=== PATIENT | female | born 2000 | race Asian ===

== ENCOUNTER 2022-09-23 03:51 | Emergency (ER) | payer BC, SELFPAY ==
[2022-09-23 04:01] VITALS: BP 125/87; PULSE 108; RESP 18; TEMP 37; O2SAT 100; BMI 23.8
--- NOTE | 2022-09-23 04:24 | ED_ITS ---
HPI - General Adult General Chief complaint: Sore Throat Stated complaint: Swollen Throat, difficulty speaking and swallowing Time Seen by Provider: 09/23/22 04:08 Source: patient Mode of arrival: ambulatory History of Present Illness HPI narrative: 22-year-old female with a history of mononucleosis, diagnosed 5 days ago presents with worsening sore throat, difficulty swallowing. No difficulty breathing. No fever. No nausea or vomiting. She has been taking Tylenol 500 mg every 4 hours at most, no ibuprofen. She reports that she was seen in the clinic and started prednisone yesterday, 2 tablets once daily but she does not recall the dose. She feels like she can no longer drink or swallow. Her urination has thus far been normal. She states that she has no long-term health problems, no prior surgeries. No long-term prescription medications, no allergies. Socially she is a nonsmoker. 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 ROS is notable for the HEENT, generalized symptoms as above, otherwise denies times 12 systems. Related Data Home Medications Medication Instructions Recorded Confirmed prednisone .ROUTE 09/23/22 Allergies Allergy/AdvReac Type Severity Reaction Status Date / Time No Known Drug Allergies [facility]ergy Verified 09/23/22 03:56 [facility] Social History Smoking Status: Never smoker Do you use any of these nicotine containing products: None Second hand tobacco smoke exposure: No How often do you have a drink containing alcohol: never How often do you have six or more drinks on one occasion: Never AUDIT-C Alcohol total score: 0 Non-prescribed substance use: denies use Exam Const: Vital Signs, click to edit/add: Vital Signs - 24 hr 09/23/22 04:01 Temperature 98.6 F Pulse Rate [Pulse Oximeter] 108 H Respiratory Rate 18 Blood Pressure [Le ft Upper Arm] 125/87 Pulse Oximetry 100 Oxygen Delivery Me thod Room Air Documenting provider has reviewed patient's vital signs: yes Common normals: no apparent distress General appearance: cooperative and well kempt Other: Excellent historian, polite and cooperative. HENMT: Common normals: normocephalic Head and scalp: normocephalic Face and sinus: normal facial exam Other: Lips are acyanotic, normal dentition. Patient is able to manage her oral secretions. Membranes are lightly moist. Tonsils are 3+ with falk plaque, mono appearance, typical of this illness. Redness and irritation noted. No stridor or airway difficulty. Eye: Common normals: conjunctivae normal General eye: normal appearance of both eyes Conjunctiva: conjunctiva(e) normal Neck & C-Spine: Other: Moderate anterior cervical and submandibular lymphadenopathy noted. Normal range of motion of neck Resp: Common normals: normal respiratory effort and clear to auscultation bilaterally Effort & inspection: able to speak in complete sentences Auscultation: clear to auscultation bilaterally Cardio: Common normals: regular rate, regular rhythm, S1 normal heart sound, S2 normal heart sound and no murmurs Rate: regular rate Rhythm: regular rhythm Heart sounds: S1 normal and S2 normal GI: Common normals: Normal to inspection, nondistended, normoactive bowel sounds present, non-tender, no hepatosplenomegaly and no masses Palpation: no hepatosplenomegaly Extremity: Common normals: normal capillary refill and no pedal edema Psych: Common normals: speech normal Appearance: well kempt Attitude: engaged Activity/motor behavior: appropriate eye contact Speech: normal speech Insight: insight good Judgement: judgment good Skin: Common normals: no rashes or lesions noted General skin exam: no rashes or lesions noted Course Vital Signs Vital signs: Initial Vital Signs Temperature 98.6 F 09/23/22 04:01 Temperature Source Temporal Artery Scan 09/23/22 04:01 Pulse Rate 108 H 09/23/22 04:01 Pulse Rhythm Regular 09/23/22 04:01 Respiratory Rate 18 09/23/22 04:01 Blood Pressure 125/87 09/23/22 04:01 Blood Pressure Mean 99 09/23/22 04:01 Pulse Oximetry 100 09/23/22 04:01 Oxygen Delivery Method Room Air 09/23/22 04:01 Vital Signs Temperature 98.6 F 09/23/22 04:01 Pulse Rate 108 H 09/23/22 04:01 Respiratory Rate 18 09/23/22 04:01 Blood Pressure 125/87 09/23/22 04:01 Pulse Oximetry 100 09/23/22 04:01 Oxygen Delivery Method Room Air 09/23/22 04:01 Temperature 98.6 F 09/23/22 04:01 Pulse Rate 108 H 05/05/23 04:01 Respiratory Rate 18 09/23/22 04:01 Blood Pressure 125/87 09/23/22 04:01 Pulse Oximetry 100 09/23/22 04:01 Oxygen Delivery Method Room Air 09/23/22 04:01 Medical Decision Making MDM Narrative Medical decision making narrative: Typical mononucleosis without any signs of secondary bacterial infection or airway compromise. Dehydration secondary to poor pain control and difficulty swallowing. Counseled patient that unfortunately when you start to get dehydrated, it hurts more in becomes more difficult to swallow and is therefore a bit of a vicious cycle. She will be given 2 L of lactated Ringer's to help replace potential potassium deficit 15 mg of IV Toradol and another dose of Tylenol. Counseled on the importance of keeping up with fluids, keeping up with Tylenol and ibuprofen. Counseled that rectal Tylenol is available [id number] if it becomes difficult to swallow. Discussed signs and symptoms of airway compromise and dehydration that would warrant repeat ED visit. She should continue the prednisone as prescribed. Hopefully this will kick in within a couple of days. Hopefully this large amount of IV fluid will get her through until the prednisone can kick in. All questions answered, she verbalizes understanding and agreement. Discharge Plan Discharge Clinical Impression: Mononucleosis syndrome, Mild dehydration Patient Disposition: Home, Self-Care Condition: Stable Instructions: Mononucleosis (ED) Additional Instructions: There are no signs of airway compromise from your mononucleosis. Even though it is difficult to swallow, your secretions are going down your throat safely. As expected with this illness, your throat is very irritated and sore. Things get more irritated if you get dehydrated. Unfortunately that starts a vicious cycle. You have been given IV fluids here in the emergency department and dose of Toradol which is basically ibuprofen. This will help somewhat with pain. I agree with the plan to start some prednisone. Continue taking this exactly as prescribed. This fluid we have given you will help get you through for the next couple of days until the prednisone can fully kick in. For pain control, You may take 4000 mg of Tylenol per day. To make this easier on you, I would recommend taking 1000 mg every 6 hours. If you have pain in between your doses of Tylenol, I would recommend that you take 600 mg of ibuprofen up to every 6 hours also. Continue pushing fluids even in small frequent amounts. Typically there are about 2 weeks of terrible sore throat with this illness. There are no other signs of significant complication. The prednisone will also improve your symptoms a little, making it easier for you to keep down liquids. There are no signs of bacterial infection or other complication today. Come back to the emergency department if you have difficulty breathing or have worsening signs of dehydration. Activity Level: Activity as Tolerated Discharge Diet: Regular Prescriptions: No Action prednisone .ROUTE Stand Alone Forms: Exploretrip Info Instructions
[2022-09-23] MEDS: KETOROLAC 15 MG/ML inj IVP (04:32)
[2022-09-23] MEDS: ACETAMINOPHEN 500 MG TABLET 1000 MG PO (04:33)
[2022-09-23 04:48] VITALS: PULSE 89; RESP 18; O2SAT 100
[2022-09-23 05:09] VITALS: BP 136/81; PULSE 90; RESP 18; O2SAT 100
[2022-09-23 06:09] VITALS: BP 136/88; PULSE 88; RESP 18; O2SAT 100
== END 2022-09-23 06:10 | disposition home or self-care (01) ==
LOC: ED 05:45
PROVIDERS: Emergency Provider Family Medicine
DX: B27.90 Infectious mononucleosis, unspecified without complication (principal); E86.0 Dehydration
CPT/HCPCS: 96374; 99282; 99283; 99284; A9270; J1885; J7120

== ENCOUNTER 2022-09-27 14:51 | Day surgery (SDC) | payer BC, SELFPAY ==
[2022-09-27] VITALS (21 sets, daily range): BP systolic 125–149; BP diastolic 20–104; PULSE 62–96; RESP 10–18; TEMP 36.4–37.3; O2SAT 95–100; BMI 23.8
--- NOTE | 2022-09-27 15:11 | CRLHL7_ITS ---
For Patients: As a result of the Century Cures Act, medical imaging exams and procedure reports are released immediately into your electronic medical record. You may view this report before your referring provider. If you have questions, please contact your health care provider. INDICATION: Right-sided peritonsillar abscess TECHNIQUE: CT soft tissue of the neck was acquired with 64 cc Isovue 370 intravenous contrast. COMPARISON: None FINDINGS: Included intracranial contents are unremarkable. Include a portion of the orbits are unremarkable. Mucous retention cyst within the left maxillary sinus. Parotid and submandibular glands are unremarkable. Enlarged jugular lymph nodes, largest at level 2 measuring 12 millimeters. Prominent tonsillar enlargement, greater on the right with a right peritonsillar fluid collection which measures 2.3 x 1.6 x 3.1 centimeters (series 3, image 26; series 4, image 27). Associated edema within the right parapharyngeal space. This causes [id number]-ardpuodk oropharyngeal narrowing. Epiglottis unremarkable. Thyroid gland unremarkable. Lung apices unremarkable. IMPRESSION: 1. Acute tonsillitis with right peritonsillar abscess measuring up to 2.3 x 1.6 x 3.1 centimeters. Associated [id number]-avwxrgnu oropharyngeal narrowing. 2. Jugular lymphadenopathy, presumed reactive to the tonsillar infection. Please note that all CT scans at this facility use dose modulation, iterative reconstruction, and/or weight-based dosing when appropriate to reduce radiation dose to as low as reasonably achievable. Dictated by Claus Min MD @ 09/27/2022 4:00:43 PM (Electronically Signed)
--- NOTE | 2022-09-27 15:21 | ED_ITS ---
HPI - General Adult General Date Seen: 09/27/22 Chief complaint: Ear/Nose/Throat Problem Stated complaint: Throat Abscess Time Seen by Provider: 09/27/22 14:55 Source: patient Mode of arrival: ambulatory Limitations: no limitations History of Present Illness HPI narrative: Patient is a very nice 22-year-old female who has on mononucleosis for the last 5 days, she has increasing swelling along the right side of her neck and problems opening her mouth, she saw the nurse practitioner [facility] here to be evaluated, they were worried about abscess. She has a low-grade fever associated with this, she has has no nausea vomiting, she has no problems swallowing her spit, but says the right side of the throat is very sore, she has been trying some Tylenol and ibuprofen. No history of in fact she tells me there is 0 chance she is . She is from [facility], is student at [employer] speaks excellent Hungarian. Related Data Home Medications Medication Instructions Recorded Confirmed prednisone .ROUTE 09/23/22 Previous Rx's Medication Instructions Recorded amoxicillin 875 mg-potassium 1 tab PO Q12H 7 days #14 tabs 09/27/22 clavulanate 125 mg tablet oxycodone 5 mg tablet 5 mg PO Q6H PRN pain #10 tabs 09/27/22 Allergies Allergy/AdvReac Type Severity Reaction Status Date / Time No Known Drug Allergies Allergy Verified 09/27/22 14:56 Review of Systems Status of ROS: Reports: 10 or more systems reviewed and unremarkable except as noted in History and below PFSH PFSH Social History Smoking Status: Never smoker Do you use any of these nicotine containing products: None Second hand tobacco smoke exposure: No How often do you have a drink containing alcohol: never How often do you have six or more drinks on one occasion: Never AUDIT-C Alcohol total score: 0 Non-prescribed substance use: denies use Exam Narrative: Exam Narrative: Patient is seen in room 3 she is thin extremely nice little bit teary, pupils equal round reactive to light TMs are normal, she has some trismus but can open up to 2 finger breaths. Right-sided peritonsillar swelling is noted, not constricting upon the uvula. Left side appears normal, lymphadenopathy 1 to 2+ in the right side, 1+ on the left. Somewhat shotty and tender, there is no up pointing of the lymph nodes, there is no meningismus, chest is clear bilaterally no wheezing crackles noted heart sounds are normal, abdomen is soft and scaphoid. Const: Vital Signs, click to edit/add: Vital Signs - 24 hr 09/27/22 14:53 09/27/22 15:51 09/27/22 16:20 Temperature 98.4 F Pulse Rate Pulse Rate [Left P ulse Oximeter] Pulse Rate [Right Pulse Oximeter] 92 94 83 Respiratory Rate 16 14 14 Blood Pressure Blood Pressure [Ri ght Arm] Blood Pressure [Ri ght Upper Arm] 133/89 125/88 130/91 H Pulse Oximetry 95 98 100 Oxygen Delivery Mt thod Room Air Room Air Room Air 09/27/22 17:25 09/27/22 18:08 09/27/22 18:10 Temperature 97.6 F 97.6 F Pulse Rate 96 88 Pulse Rate [Left P ulse Oximeter] Pulse Rate [Right Pulse Oximeter] 92 Respiratory Rate 16 14 10 L Blood Pressure 140/96 H 139/92 H Blood Pressure [Ri ght Arm] Blood Pressure [Ri ght Upper Arm] 138/93 H Pulse Oximetry 100 100 97 Oxygen Delivery Mt thod Room Air Room Air Room Air 09/27/22 18:15 09/27/22 18:20 09/27/22 18:25 Temperature Pulse Rate 89 85 73 Pulse Rate [Left P ulse Oximeter] Pulse Rate [Right Pulse Oximeter] Respiratory Rate 14 10 L 10 L Blood Pressure 135/87 136/20 L 131/86 Blood Pressure [Ri ght Arm] Blood Pressure [Ri ght Upper Arm] Pulse Oximetry 98 100 98 Oxygen Delivery Mt thod Room Air Room Air Room Air 09/27/22 18:30 09/27/22 18:35 09/27/22 18:40 Temperature 97.9 F Pulse Rate 69 79 80 Pulse Rate [Left P ulse Oximeter] Pulse Rate [Right Pulse Oximeter] Respiratory Rate 12 14 14 Blood Pressure 132/85 149/97 H 139/83 Blood Pressure [Ri ght Arm] Blood Pressure [Ri ght Upper Arm] Pulse Oximetry 98 100 100 Oxygen Delivery Mt thod Room Air Room Air Room Air 09/27/22 18:45 09/27/22 19:00 09/27/22 19:15 Temperature 99.0 F Pulse Rate Pulse Rate [Left P ulse Oximeter] 79 82 77 Pulse Rate [Right Pulse Oximeter] Respiratory Rate 16 16 16 Blood Pressure Blood Pressure [Ri ght Arm] 144/94 H 143/104 H 131/84 Blood Pressure [Ri ght Upper Arm] Pulse Oximetry 100 100 98 Oxygen Delivery Me thod Room Air Room Air Room Air 09/27/22 19:30 Temperature Pulse Rate Pulse Rate [Left P ulse Oximeter] 89 Pulse Rate [Right Pulse Oximeter] Respiratory Rate 16 Blood Pressure Blood Pressure [Ri ght Arm] 141/91 H Blood Pressure [Ri ght Upper Arm] Pulse Oximetry 99 Oxygen Delivery Me thod Room Air Course Course Hospital Course: through , will come and see patient. Dr. Benavides did come see the patient, he will be taking her to the OR for drainage, he will give antibiotics and air in the operating room, she will be kept NPO. She is fit for surgery ASA 1. This will suffice is a preop history and physical. Vital Signs Vital signs: Initial Vital Signs Temperature 98.4 F 09/27/22 14:53 Temperature Source Temporal Artery Scan 09/27/22 14:53 Pulse Rate 92 09/27/22 14:53 Pulse Rhythm Regular 09/27/22 14:53 Pulse Strength 3+ Normal 09/27/22 14:53 Respiratory Rate 16 09/27/22 14:53 Blood Pressure 133/89 09/27/22 14:53 Blood Pressure Mean 103 09/27/22 14:53 Blood Pressure Position Sitting 09/27/22 14:53 Pulse Oximetry 95 09/27/22 14:53 Oxygen Delivery Method Room Air 09/27/22 14:53 Vital Signs Temperature 98.4 F 09/27/22 14:53 Pulse Rate 92 09/27/22 14:53 Respiratory Rate 16 09/27/22 14:53 Blood Pressure 133/89 09/27/22 14:53 Pulse Oximetry 95 09/27/22 14:53 Oxygen Delivery Method Room Air 09/27/22 14:53 Temperature 99.0 F 09/27/22 18:45 Pulse Rate 89 09/27/22 19:30 Respiratory Rate 16 09/27/22 19:30 Blood Pressure 141/91 H 05/09/23 19:30 Pulse Oximetry 99 09/27/22 19:30 Oxygen Delivery Method Room Air 09/27/22 19:30 Medical Decision Making MDM Narrative Medical decision making narrative: During this evaluation I considered peritonsillar abscess retropharyngeal abscess epiglottitis, strep pharyngitis, viral pharyngitis and worsening of her mononucleosis. We will go ahead and start an IV, will do some labs, get a CT scan will with IV contrast, and likely after does discussed the case with ENT. Signed over to the oncoming ER physician for further disposition, we talked about treatment options available to our was started on IV fluids and give her some Toradol IV, she was comfortable this plan. Medical Records Medical records reviewed: Yes I reviewed the patient's medical records Lab Data Lab results reviewed: Yes I reviewed the patient's lab results Labs: Lab Results 09/27/22 09/27/22 Range/Units 15:00 15:20 WBC 11.87 H (4.50-11.00) K/uL RBC 4.73 (4.00-5.20) m/uL Hgb 11.9 L (12.0-16.0) gm/dL Hct 37.5 (33.0-51.0) % MCV 79 L (80-100) fL MCH 25 L (26-34) pg MCHC 32 (32-36) gm/dL RDW Coeff of Keyshawn 16.7 H (11.5-15.5) % Plt Count 332 (140-440) K/uL Neut % (Auto) 57.7 (42.0-72.0) % Lymph % (Auto) 35.6 (20-44) % [place] % (Auto) 5.8 (0.0-11.0) % Eos % (Auto) 0.4 (0.0-7.0) % Baso % (Auto) 0.2 (0.0-3.0) % Neut # (Auto) 6.80 (1.7-7.0) K/uL Lymph # (Auto) 4.20 H (0.90-2.90) K/uL [place] # (Auto) 0.70 (0.00-0.90) K/UL Eos # (Auto) 0.00 (0.00-0.50) K/uL Baso # (Auto) 0.00 (0.00-0.30) K/uL Sodium 139 (135-149) mmol/L Potassium 3.5 L (3.6-5.1) mmol/L Chloride 105 (96-114) mmol/L Carbon Dioxide 24 (20-32) mmol/L BUN 8 (5-24) mg/dL Creatinine 0.7 (0.5-1.5) mg/dL Estimated Creat Clear 101.39 Estimated GFR 127 ml/min Glucose 100 (60-115) mg/dL Calcium 8.8 (8.4-10.6) mg/dL C-Reactive Protein 7.0 H (0.5-1.0) mg/dL Group A Strep DNA NOT DETECTED (Not Detectd) Imaging Data Soft tissue neck: Attestation: I have reviewed the pertinent imaging results. My impression: Right-sided peritonsillar abscess, Radiologist's impression: Patient: SUSAN ANN Facility:?[facility] Patient ID:?[id number] Site Patient ID:?[id number]. Site :?[id number] Study:?CT ST Neck W ISOVUE 370-09/27/2022 3:45:11 PM Ordering Physician:?Mary Otto Final Report: INDICATION: Right-sided peritonsillar abscess TECHNIQUE: CT soft tissue of the neck was acquired with 64 cc Isovue 370 intravenous contrast. COMPARISON: None FINDINGS: Included intracranial contents are unremarkable. Include a portion of the orbits are unremarkable. Mucous retention cyst within the left maxillary sinus. Parotid and submandibular glands are unremarkable. Enlarged jugular lymph nodes, largest at level 2 measuring 12 millimeters. Prominent tonsillar enlargement, greater on the right with a right peritonsillar fluid collection which measures 2.3 x 1.6 x 3.1 centimeters (series 3, image 26; series 4, image 27). Associated edema within the right parapharyngeal space. This causes ldwi-oi-nyenlyoz oropharyngeal narrowing. Epiglottis unremarkable. Thyroid gland unremarkable. Lung apices unremarkable. IMPRESSION: 1. Acute tonsillitis with right peritonsillar abscess measuring up to 2.3 x 1.6 x 3.1 centimeters. Associated ppnh-av-ugpcwylo oropharyngeal narrowing. 2. Jugular lymphadenopathy, presumed reactive to the tonsillar infection. Please note that all CT scans at this facility use dose modulation, iterative reconstruction, and/or weight-based dosing when appropriate to reduce radiation dose to as low as reasonably achievable. Dictated by Claus Min MD @ 09/27/2022 4:00:43 PM (Electronic Signature) Discharge Plan Discharge Clinical Impression: Abscess, peritonsillar Patient Disposition: Admitted As Inpatient Condition: Stable Activity Level: Activity as Tolerated Discharge Diet: Regular
[2022-09-27] MEDS: KETOROLAC 30 MG/ML inj IVP (15:30)
[2022-09-27 15:33] LABS: Basophils Percent Auto 0.2 % (0.0-3.0); Eosinophils Percent Auto 0.4 % (0.0-7.0); Hematocrit 37.5 % (33.0-51.0); Hemoglobin* 11.9 gm/dL (12.0-16.0); Immature Granulocytes Pct Auto 0.3 %; Lymphocytes Percent Auto 35.6 % (20-44); Mean Corpuscular HGB Conc 32 gm/dL (32-36); Mean Corpuscular Hemoglobin 25 pg (26-34); Mean Corpuscular Volume 79 fL (80-100); Monocytes Percent Auto 5.8 % (0.0-11.0); Neutrophils Percent Auto 57.7 % (42.0-72.0); Platelet Count* 332 K/uL (140-440); RDW Coefficient of Variation % 16.7 % (11.5-15.5); Red Blood Count 4.73 m/uL (4.00-5.20); White Blood Count* 11.87 K/uL (4.50-11.00)
[2022-09-27 15:44] LABS: Slide Review Reflex No
[2022-09-27] MEDS: 0.9 % SODIUM CHLORIDE 1000 ml 1,000 ML IV (15:48)
[2022-09-27 15:53] LABS: Chloride* 105 mmol/L (96-114); Potassium* 3.5 mmol/L (3.6-5.1); Sodium* 139 mmol/L (135-149)
[2022-09-27 15:56] LABS: Creatinine* 0.7 mg/dL (0.5-1.5); Est. Creatinine Clearance* 101.39; Estimated Glomerular Filt Rate 127 ml/min
[2022-09-27 15:57] LABS: Blood Urea Nitrogen* 8 mg/dL (5-24); Calcium* 8.8 mg/dL (8.4-10.6); Carbon Dioxide* 24 mmol/L (20-32); Glucose* 100 mg/dL (60-115)
[2022-09-27 17:00] LABS: Strep A DNA Probe* NOT DETECTED (Not Detectd)
[2022-09-27] MEDS: MORPHINE 4 MG/ML INJ IVP (17:13)
[2022-09-27] MEDS: AMPICILLIN/SULBACTAM 3 GM in 0.9 % SODIUM CHLORIDE Mini-bag 100 ML IVPB (17:35)
--- NOTE | 2022-09-27 18:04 | W.PM.ENTPROC ---
Procedure Note Date of procedure: 09/27/22 Pre-op diagnosis: Right peritonsillar abscess Post-op diagnosis: same Procedure: Incision and drainage right peritonsillar abscess Patient recently had mononucleosis. Recent sore throat. CT scan in the ER today revealed a 2.3 x 1.6 x 3.1 right peritonsillar abscess. After discussion of goals, risks and potential complications, the patient consented for incision and drainage right peritonsillar abscess under general oral endotracheal anesthesia. Patient was brought to the operating room and after adequate general oral endotracheal anesthesia, was prepped and draped in the supine feroz position. The mouth gag was inserted in the oropharynx was exposed. Incision was made in the mid superior pole and blunt dissection was performed. With the dissection there was spontaneous drainage from the posterior aspect of the superior tonsil. This area was bluntly probed in the abscess cavity entered. This was drained without difficulty. Approximately 5 mL of gross pus. Culture swab was taken for general bacteria. Surgicel gauze was placed over the incision and the abscess draining site for approximately 5 minutes. Some bleeding was also controlled with electrocautery. The lesser blood loss approximately 5 mL. Patient was awakened and extubated in the operating room and returned to the recovery room in stable condition. Intraoperatively patient was given 3 g of Unasyn. Anesthesia Type: General Surgeon: Paxton Benavides MD Estimated blood loss (mL): 5 Pathology: other Condition: stable
[2022-09-27] MEDS: fentaNYL 100 MCG/2 ML inj 50 MCG IVP ×2 (18:12→18:22)
--- NOTE | 2022-09-27 18:14 | P.ANES_ITS ---
Anesthesia Charges Start Date/Time Anesthesia Start Date: 09/27/22 Anesthesia Start Time: 17:26 Stop Date/Time Anesthesia Stop Date: 09/27/22 Anesthesia Stop Time: 18:12 Summary Emergency: [employer] [facility]
[2022-09-27] MEDS: LACTATED RINGERS 1000 ML 1,000 ML 100 ML IV (21:36)
--- NOTE | 2022-09-27 22:53 | PC.NURSE ---
End Of Shift: Patient from PACU at 1845. Pleasant and cooperative. States some discomfort with swallowing but denies need for PRN pain medication. States is much improved from before surgery. Tolerating fluids and soft foods with no nausea or difficulty swallowing. Up to bathroom with SBA and voiding without difficulty. Temp max 99.1. Patient voiced concern about discharging this evening. Updated MD and OK for patient to spend the night and discharge in the morning. Per MD patient does not need antibiotics tonight.
[2022-09-28] VITALS: BP 129/85; PULSE 71; RESP 16; TEMP 36.8; O2SAT 99
[2022-09-28 01:15] VITALS: BP 119/76; PULSE 60; RESP 14; TEMP 37.3; O2SAT 98
[2022-09-28 03:25] VITALS: BP 122/90; PULSE 67; RESP 16; TEMP 37; O2SAT 98
[2022-09-28] MEDS: ACETAMINOPHEN 160 MG/5 ML CUP 320 MG PO (03:33)
--- NOTE | 2022-09-28 06:51 | PC.NURSE ---
END OF SHIFT NOTE: PT PLEASANT AND COOPERATIVE. PT DENIES CP, SOB, N/V. PT REPORTS?INCREASED SALIVATION. PT REPORTS TONGUE FEELING SLIGHTLY SWOLLEN; UPON OBSERVATION TONGUE NOT OBSTRUCTING AIRWAY, RIGHT SIDE OF THROAT WITH ERYTHEMA. PT?AMBULATES INDEPENDENTLY. VSS ON RA; AFEBRILE. PT STATES SWALLOWING DOES NOT HURT MUCH IT DID PRIOR TO SURGERY. NO CONCERNS TO NOTE. CALL LIGHT WITHIN PT?S REACH.? ?
[2022-09-28 07:45] VITALS: BP 123/80; PULSE 87; RESP 16; TEMP 36.7; O2SAT 99
--- NOTE | 2022-09-28 10:07 | PC.NURSE ---
Pt declined offer of pain medications at initial assessment. Adequate I & O, tolerating regular diet. Airway patent, no difficulty handling secretions, no changes in voice level. Pt denies difficulty swallowing. ( + mono) Pt verbalized understanding of d/c instructions, home meds, pain management plan and sx to report urgently to physician. Ambulatory d/c to [facility] w/personal belongings with campus security as transportation @ 0900.
== END 2022-09-28 09:00 | disposition home or self-care (01) ==
LOC: ED 17:16 → SS 17:32 → MEDSURG 09-28 08:22
PROVIDERS: Emergency Provider Family Medicine; Visit Provider Otolaryngology
PROC: 0C9PXZZ Drainage of Tonsils, External Approach (ICD-10-PCS; CPT 42700; principal; 2022-09-27 17:30)
DX: J36 Peritonsillar abscess (principal)
CPT/HCPCS: 42700; 00170; 36415; 70491; 80048; 85025; 86140; 87070; 87075; 87186; 87205; 87651; 99140; 99284; A9270; J0295; J0330; J1100; J1200; J1885; J2270; J2405; J2704; J3010; J7030; J7120; Q9967